=== PATIENT | female | born 1940 | race Caucasian/White ===

== ENCOUNTER 2017-10-04 10:48 | Observation (INO) ==
--- NOTE | 2017-10-04 11:36 | Emergency Department Note ---
Disposition Clinical Impression: Hypernatremia, Hypocalcemia, Dizziness, Nausea & vomiting Disposition: Admitted As Inpatient Condition: Fair Referrals: Tanesha Merritt MD [Primary Care Provider] - Forms: ED Satisfaction Letter Time of Disposition: 13:06 Dizziness HPI - General Chief Complaint: ED Dizziness Stated Complaint: Dizzy / Nausea Time Seen by Provider: 10/04/17 11:07 Source: patient, family Mode of arrival: ambulatory Limitations: no limitations Nursing Notes Reviewed: Yes Vital Signs Reviewed: Yes - History of Present Illness HPI Narrative: 76-year-old female who got up this morning was dizzy and had trouble walking to the bathroom. This occurred about 2 AM. States the dizziness is much worse with position. Pt Subjective Complaint: dizziness Onset (ago): Just [employer] Timing: sudden onset Description: "room spinning", off-balance, difficulty walking History of similar episodes: No History of trauma: No Severity: severe Improves with: nothing Worsens with: movement Associated symptoms: Reports: ataxia - Related Data Previous Rx's Medication Instructions Recorded Meclizine [Antivert] 25 mg PO TID PRN #20 tablet 06/30/16 Allergies Allergy/AdvReac Type Severity Reaction Status Date / Time No Known Allergies Allergy Verified 10/04/17 10:52 All systems ED: reviewed and negative except as stated. Constitutional: Denies: fever, chills, weakness, weight change Eyes: Denies: eye pain, eye discharge, vision change ENT ED: Denies: ear pain, throat pain, dental pain, hearing loss, epistaxis, congestion, dysphagia Cardiovascular: Denies: chest pain, palpitations, dyspnea on exertion, edema, syncope Respiratory: Denies: cough, dyspnea, wheezes, hemoptysis, stridor Gastrointestinal: Denies: abdominal pain, nausea, vomiting, diarrhea, constipation, hematemesis, melena, hematochezia Genitourinary: Denies: dysuria, frequency, hematuria, discharge Musculoskeletal: Denies: back pain, neck pain, arthralgia, myalgia Integumentary: Denies: rash, abrasion, lesions Neurological: Reports: other (Dizziness). Denies: headache, weakness, numbness , paresthesias, confusion, abnormal gait, vertigo Psychiatric: Denies: anxiety, depression, suicidal thoughts, homicidal thoughts , auditory hallucinations, visual hallucinations Endocrine: Denies: fatigue Hematological/Lymphatic: Denies: easy bleeding, easy bruising Allergic/Immunologic: Denies: facial swelling, urticaria Past Medical History - Past Medical History Medical history: Reports: arthritis, coronary artery disease, osteoporosis, thyroid disease, other Surgical history: Reports: cholecystectomy, thyroidectomy Psychiatric history: Reports: no psych history - Social History Smoking Status: Never smoker Smokeless Tobacco Status: No Alcohol use: Reports: none Drug use: Reports: none Physical Exam - General Limitations: no limitations General appearance: alert, in no apparent distress - Head Head exam: atraumatic, normocephalic, normal inspection - Eye Eye exam: Present: normal appearance, PERRL, EOMI - ENT ENT exam: normal exam, normal oropharynx, mucous membranes moist - Neck Neck exam: Present: normal inspection, full ROM, trachea midline - Chest Chest inspection: Present: normal inspection, symmetric chest wall rise - Respiratory Respiratory exam: Present: normal lung sounds bilaterally - Cardiovascular Cardiovascular exam: Present: regular rate, normal rhythm, normal heart sounds - Abdominal Exam Abdominal exam: Present: soft, Non-Tender. Absent: tenderness, distention, guarding, rebound, rigidity - Extremities Exam Extremities exam: Present: normal inspection, full ROM. Absent: tenderness, pedal edema - Expanded Lower Extremity Exam Neurovascular/Tendon exam: Absent: motor deficit, sensory deficit, tendon deficit - Back Exam Back exam: Present: normal inspection, full ROM. Absent: tenderness - Neurological Exam Neurological exam: Present: alert, oriented X3 - Psychiatric Psychiatric exam: Present: normal affect, normal mood - Skin Skin exam: Present: warm, dry, intact, normal color Course - Consultations Consultation #1: Discussed with Dr Francis, recommends D5 in water at 75 mL an hour. Time: 13:03 Consultation #2: Discussed with Dr. Engel, admit. Time: 13:04 Vital Signs Temperature 97.7 F 10/04/17 10:49 Pulse Rate 73 10/04/17 10:49 Respiratory Rate 18 10/04/17 10:49 Blood Pressure 154/91 10/04/17 10:49 O2 Sat by Pulse Oximetry 95 10/04/17 10:49 Temperature 97.7 F 10/04/17 10:49 Pulse Rate 67 10/04/17 12:30 Respiratory Rate 18 10/04/17 12:30 Blood Pressure 161/87 10/04/17 12:30 O2 Sat by Pulse Oximetry 98 10/04/17 12:30 Oxygen Delivery Oxygen Delivery Room Air Dizziness - Lab Data Lab results reviewed: Yes I reviewed the patient's lab results. Result diagrams: 10/04/17 11:12 10/04/17 11:12 Lab Results 10/04/17 10/04/17 10/04/17 Range/Units 11:11 11:12 11:12 WBC 4.2 L (4.3-11.1) K/mcL RBC 4.31 (3.82-4.97) M/mcL Hgb 13.0 (11.5-15.4) g/dL Hct 38.3 (35.3-44.9) % MCV 88.9 (83.0-100.0) fL MCH 30.2 (28.0-33.3) pg MCHC 33.9 (31.6-35.5) g/dL RDW 11.9 (11.5-14.5) % Plt Count 141 (140-400) K/mcL MPV 11.1 (9.4-12.4) fL Immature Gran % 1.0 (0-4) % Seg Neutrophils % 59.0 % Lymphocytes % 30.5 % Monocytes % 5.0 % Eosinophils % 3.3 % Basophils % 1.2 % Neutrophils # 2.5 (1.6-8.9) K/mcL Lymphocytes # 1.3 (0.6-4.6) K/mcL Monocytes # 0.2 (0.0-1.3) K/mcL Eosinophils # 0.1 (0.0-0.6) K/mcL Basophils # 0.1 (0.0-0.2) K/mcL Sodium 162 H* (136-145) mEq/L Potassium 4.0 (3.5-5.1) mEq/L Chloride 89 L (98-107) mEq/L Carbon Dioxide 21 L (23-29) mEq/L BUN 13 (8-23) mg/dL Creatinine 0.60 (0.60-1.20) mg/dL Est GFR ( Amer) > 60 (> 60) Est GFR (Non-Af Amer) > 60 (> 60) BUN/Creatinine Ratio 22 (6-26) Glucose 145 H (70-105) mg/dL POC Glucose 136 H (70-99) mg/dL Calculated Osmolality 337 H (280-300) Calcium 7.0 L (8.6-10.3) mg/dL Troponin I < 0.03 (< 0.04) ng/mL TSH 0.249 L (0.340-5.600) mcIU/mL Thyroxine (T4) 9.25 (5.50-11.00) mcg/dL - EKG Data EKG attestation: Yes I reviewed and interpreted this EKG. EKG shows normal: sinus rhythm Rate: normal Rhythm: NSR, PVC's Interpretation: no acute changes
[2017-10-04 11:39] LABS: Basophils # 0.1 K/mcL (0.0-0.2); Basophils % 1.2 %; Eosinophils # 0.1 K/mcL (0.0-0.6); Eosinophils % 3.3 %; Hematocrit 38.3 % (35.3-44.9); Lymphocytes # 1.3 K/mcL (0.6-4.6); Lymphocytes % 30.5 %; Mean Corpuscular HGB Conc 33.9 g/dL (31.6-35.5); Mean Corpuscular Hemoglobin 30.2 pg (28.0-33.3); Mean Corpuscular Volume 88.9 fL (83.0-100.0); Mean Platelet Volume 11.1 fL (9.4-12.4); Monocytes # 0.2 K/mcL (0.0-1.3); Neutrophils # 2.5 K/mcL (1.6-8.9); Platelet Count 141 K/mcL (140-400); Red Blood Count 4.31 M/mcL (3.82-4.97); Red Cell Distribution Width 11.9 % (11.5-14.5)
[2017-10-04 12:05] LABS: BUN/Creatinine Ratio 22 (6-26); Blood Urea Nitrogen 13 mg/dL (8-23); Carbon Dioxide 21 mEq/L (23-29); Chloride 89 mEq/L (98-107); Glucose 145 mg/dL (70-105); Osmolality,Calculated 337 (280-300); Sodium 162 mEq/L (136-145); Troponin I < 0.03 ng/mL (< 0.04); eGFR For African Americans > 60 (> 60); eGFR For Non-African Americans > 60 (> 60)
[2017-10-04 12:51] LABS: Thyroid Stimulating Hormone 0.249 mcIU/mL (0.340-5.600)
--- NOTE | 2017-10-04 13:14 | Internal Med History&Physical ---
Date of Encounter: 10/04/17 Time of Encounter: 13:13 Internal Medicine - H&P: HPI Chief complaint: N,V and dizzness History of present illness: Ms. Henry is a 76 year old female with past medical history of hypothyroidism, hyperlipidemia who presented this morning with episode of dizziness where she felt that the room spinning around her ., Aggravated by change in position , associated with nausea vomiting, she was evaluated by the ER staff and it was found that her sodium is above 160, also her calcium was around 7, nephrology was consulted and they recommended D5 W fluid at the rate of 75 , the patient was admitted for further evaluation and management of severe hyponatremia, hypocalcemia and dizziness. Past Med Surg Social Fam HX - Past Medical History Medical history: arthritis, coronary artery disease, osteoporosis, thyroid disease, other Psychiatric history: no psych history - Past Surgical History Surgical History: cholecystectomy, thyroidectomy - Social History Smoking Status: Never smoker Smokeless Tobacco Status: No Alcohol use: none Drug use: none Internal Medicine - H&P: Meds Aspirin [Lo-Dose Aspirin EC] 81 mg PO DAILY 10/04/17 [History] Cyclobenzaprine HCl 5 mg PO DAILY PRN 10/04/17 [History] Levothyroxine Sodium [Levoxyl] 88 mcg PO DAILY 10/04/17 [History] Meloxicam [Mobic] 15 mg PO DAILY 10/04/17 [History] Multivit-Min/FA/Lycopen/Lutein [A Thru Z Select Multivit Tab] 1 tab PO DAILY [History] Simvastatin [Zocor] 20 mg PO 2XW 10/04/17 [History] Ubidecarenone/Vit E/Vit E Mix [Co-Enzyme Q10 100 mg Softgel] 1 cap PO DAILY [History] Meclizine [Antivert] 12.5 mg PO TID 7 Days #21 tablet 10/06/17 [Rx] 3 Allergy/AdvReac Type Severity Reaction Status Date / Time No Known Allergies Allergy Verified 10/04/17 10:52 All Systems PM: A 10-system review of systems was performed and is negative for pertinent findings except as documented above in the HPI. - Constitutional Constitutional: fatigue, no chills, no fever(s), no night sweats - Cardiovascular Cardiovascular ROS IM: no chest pain, no diaphoresis, no dyspnea, no lightheadedness, no palpitations, no syncope - Respiratory Respiratory: no cough, no dyspnea, no wheezing, no excessive phlegm production - Gastrointestinal Gastrointestinal: nausea, vomiting, no abdominal pain, no diarrhea, no hematemesis, no hematochezia, no melena - Neurological Neurological ROS: dizziness, vertigo, no confusion, no convulsions, no focal weakness, no numbness, no tingling, no tremor(s) - Constitutional Vitals: Temp Pulse Resp BP Pulse Ox 97.7 F 67 18 161/87 98 10/04/17 10:49 10/04/17 12:30 10/04/17 12:30 10/04/17 12:30 10/04/17 12:30 General appearance: Present: A&O X 3 - Head Head exam: Present: atraumatic, normocephalic - Neck Neck exam general surgery: Present: supple, trachea midline. Absent: lymphadenopathy - Respiratory Respiratory exam: Present: CTAB. Absent: accessory muscle use, rales, rhonchi, wheezes - Cardiovascular Cardiovascular exam: Present: RRR, +S1, +S2. Absent: diastolic murmur, gallop, rubs, systolic murmur - GI/Abdominal GI/Abdominal exam: Present: normal bowel sounds, soft, no peritoneal signs. Absent: distended, tenderness - Extremities Exam Extremities exam: Present: warm, radial pulses palpable and symmetrical. Absent : calf tenderness, cyanotic, pedal edema Internal Med - H&P Results - Labs CBC & Chem 7: 10/05/17 02:15 10/05/17 02:15 Labs: Short CBC 10/04/17 Range/Units 11:12 WBC 4.2 L (4.3-11.1) K/mcL Hgb 13.0 (11.5-15.4) g/dL Hct 38.3 (35.3-44.9) % Plt Count 141 (140-400) K/mcL Neutrophils # 2.5 (1.6-8.9) K/mcL BMP 10/04/17 11:12 Sodium 162 H* Potassium 4.0 Chloride 89 L Carbon Dioxide 21 L BUN 13 Creatinine 0.60 Glucose 145 H Calcium 7.0 L Cardiac Enzymes 10/04/17 Range/Units 11:12 Troponin I < 0.03 (< 0.04) ng/mL - Impressions ITS Impressions Head CT 10/04/17 11:12 IMPRESSION: No acute intracranial abnormality. D/ / Ashlee Coughlin MD / Ashlee Coughlin MD Interpreting Provider: Ashlee Coughlin MD - Assessment and plan (1) Hypernatremia Status: Resolved Assessment and plan: Most likely secondary to volume depletion, nephrology was consulted and they recommended D5 W fluid at the rate of 75 (2) Hypocalcemia Status: Acute Assessment and plan: We will obtain ionized calcium. (3) Nausea & vomiting Status: Resolved Assessment and plan: the patient is complaining of several episodes of nausea vomiting, appears on the dry side, will start IV hydration with D5 W fluid at the rate of 75, Antiemetics Qualifiers: Qualified Code(s): R11.2 - Nausea with vomiting, unspecified (4) Dizziness Status: Acute Assessment and plan: rule out benign positional vertigo, we will consult neurology for further evaluation. (5) Hypothyroid Status: Chronic Assessment and plan: We will cont home meds Qualifiers: Qualified Code(s): E03.9 - Hypothyroidism, unspecified (6) Hyperlipemia Status: Acute Assessment and plan: We will cont homs Statin, FLP in AM Qualifiers: Qualified Code(s): E78.5 - Hyperlipidemia, unspecified (7) DVT prophylaxis Status: Acute Assessment and plan: SC heparin - Time Spent With Patient Total time spent is greater than 50% in coordination of care (as documented) at patient's floor/unit and/or counseling patient:
[2017-10-04] MEDS ORDERED: Naloxone 0.4 MG/ML INJ IVP PRN (13:56)
[2017-10-04 14:32] LABS: VBG Ionized Calcium 1.15 mmol/L (1.15-1.35)
[2017-10-04] MEDS: D5% in Water 1,000 ML IVC SCH (14:56)
[2017-10-04 15:37] LABS: Bilirubin,Urine Negative (Negative); Blood,Urine Negative (Negative); Clarity,Urine Clear (Clear); Color,Urine Yellow (Yellow); Glucose,Urine (UA) Normal (Normal); Ketones,Urine Negative (Negative); Leukocyte Esterase,Urine Negative (Negative); Nitrite,Urine Negative (Negative); PH,Urine 5.5 pH Units (5.0-8.0); Protein,Urine Negative (Neg-Trace); Specific Gravity,Urine 1.023 (1.010-1.025); Urobilinogen,Urine Normal (Normal)
[2017-10-04 22:34] LABS: Troponin I < 0.03 ng/mL (< 0.04)
[2017-10-04 22:48] LABS: Sodium 138 mEq/L (136-145)
[2017-10-05 02:32] LABS: Basophils % 0.5 %; Eosinophils # 0.1 K/mcL (0.0-0.6); Eosinophils % 1.1 %; Hematocrit 36.3 % (35.3-44.9); Hemoglobin 12.2 g/dL (11.5-15.4); INR 1.1; Immature Granulocytes % 0.4 % (0-4); Lymphocytes # 1.9 K/mcL (0.6-4.6); Lymphocytes % 23.5 %; Mean Corpuscular HGB Conc 33.6 g/dL (31.6-35.5); Mean Corpuscular Hemoglobin 29.7 pg (28.0-33.3); Mean Corpuscular Volume 88.3 fL (83.0-100.0); Mean Platelet Volume 11.3 fL (9.4-12.4); Monocytes # 0.6 K/mcL (0.0-1.3); Monocytes % 6.9 %; Neutrophils # 5.5 K/mcL (1.6-8.9); Platelet Count 154 K/mcL (140-400); Prothrombin Time 11.5 Seconds (9.4-12.1); Red Blood Count 4.11 M/mcL (3.82-4.97); Segmented Neutrophils % 67.6 %
[2017-10-05 02:36] LABS: Activated Partial Thrombo Time 20.4 Seconds (26.0-36.0)
[2017-10-05 02:45] LABS: Alanine Aminotransferase 18 Units/L (7-52); Albumin 3.9 g/dL (3.5-5.7); Albumin/Globulin Ratio 1.6 (1.1-2.2); Alkaline Phosphatase 63 Units/L (34-104); Aspartate Amino Transferase 22 Units/L (13-39); BUN/Creatinine Ratio 18 (6-26); Bilirubin,Total 0.6 mg/dL (0.3-1.0); Blood Urea Nitrogen 10 mg/dL (8-23); Calcium 9.2 mg/dL (8.6-10.3); Carbon Dioxide 25 mEq/L (23-29); Chloride 109 mEq/L (98-107); Chol/HDL Ratio 3.2 (0-4.9); Cholesterol 156 mg/dL (< 200); Globulin 2.5 g/dL (2.4-3.5); Glucose 115 mg/dL (70-105); HDL Cholesterol 49 mg/dL (40-59); LDL Cholesterol,Calculated 83 mg/dL (0-99); Osmolality,Calculated 288 (280-300); Phosphorous 2.9 mg/dL (2.7-4.5); Potassium 3.6 mEq/L (3.5-5.1); Sodium 139 mEq/L (136-145); Total Protein 6.4 g/dL (6.4-8.9); Triglycerides 120 mg/dL (< 150); eGFR For African Americans > 60 (> 60); eGFR For Non-African Americans > 60 (> 60)
[2017-10-05] MEDS: D5% in Water 1,000 ML IVC SCH (04:20)
--- NOTE | 2017-10-05 07:20 | Electrocardiograph Report ---
[facility] Test Date: 2017-10-04 Pat Name: Ivania Henry Department: 102 Room: 2N05 Gender: F [employer]: Thang : 1940 Requested By: Lawrence Paniagua Order Number: [id number] Reading MD: Camille Ferrara Measurements Intervals [place] Rate: 79 P: 52 MN: 170 QRS: 4 QRSD: 100 T: 64 QT: 387 QTc: 422 Interpretive Statements SINUS RHYTHM WITH OCCASIONAL VENTRICULAR PREMATURE COMPLEXES SEPTAL MYOCARDIAL INFARCTION [40+ ms Q WAVE IN V1/V2], PROBABLY OLD WARNING: DATA QUALITY MAY AFFECT INTERPRETATION Electronically Signed On 10-05-2017 7:19:01 EDT by Camille Ferrara
--- NOTE | 2017-10-05 07:28 | Event Note ---
Date of Encounter: 10/05/17 Time of Encounter: 07:25 Nephrology chart review There appears to be no hypernatremia or hypocalcemia on this patient's labs. I suspect the initial law draw in the ER was erroneous. No indications therefore for a nephrology consult; will sign-off. Please feel free to call or page me with any questions.
[2017-10-05] MEDS: Aspirin Enteric Coated 81 MG Tablet PO SCH (09:09)
[2017-10-05] MEDS: Multivit/Ca/Min/Fe/FA 1 TAB TABLET PO SCH (09:09)
--- NOTE | 2017-10-05 09:45 | Neurology - Consult Note ---
Date of Encounter: 10/05/17 Time of Encounter: 08:15 Assessment and Plan (1) Dizziness Current Visit: No Status: Acute Vertiginous-type dizziness with positive Vestal-Hallpike. Patient states that she has mild improvement compared with yesterday. Most likely etiology is BPPV. Will obtain MRI to rule out posterior fossa infarct. continue meclizine daily for 1 to 2 weeks. Should follow up with ENT for VNG, vestibular therapy. History of Present Illness Chief complaint: Dizziness HPI: Ivania Henry is a 76 year old female who presents with dizziness that started in the [employer] of 10/04/17. She first noticed it on standing to use the restroom at around 4 am. She had to brace herself along the wall to make it to the bathroom, but attributed it to "being half-asleep" and went back to bed. She awoke several hours later, and the dizziness was much worse and was brought on by any movement. She also experienced nausea and vomiting. She describes the dizziness as similar to past episodes of vertigo, the last being several years ago. She states that she feels "disoriented" and like she "doesn't know where to put [her] feet down", but denies room spinning. She denies any other symptoms , including headache, numbness, or weakness. 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 Past Med Surg Social Fam HX - Past Medical History Medical history: arthritis, coronary artery disease, osteoporosis, thyroid disease, other Psychiatric history: no psych history - Past Surgical History Surgical History: cholecystectomy, thyroidectomy - Social History Smoking Status: Never smoker Smokeless Tobacco Status: No Alcohol use: none Drug use: none Medications and Allergies Aspirin [Lo-Dose Aspirin EC] 81 mg PO DAILY 10/04/17 [History] Cyclobenzaprine HCl 5 mg PO DAILY PRN 10/04/17 [History] Levothyroxine Sodium [Levoxyl] 88 mcg PO DAILY 10/04/17 [History] Meloxicam [Mobic] 15 mg PO DAILY 10/04/17 [History] Multivit-Min/FA/Lycopen/Lutein [A Thru Z Select Multivit Tab] 1 tab PO DAILY [History] Simvastatin [Zocor] 20 mg PO 2XW 10/04/17 [History] Ubidecarenone/Vit E/Vit E Mix [Co-Enzyme Q10 100 mg Softgel] 1 cap PO DAILY [History] 3 Allergy/AdvReac Type Severity Reaction Status Date / Time No Known Allergies Allergy Verified 10/04/17 10:52 All Systems: The remainder of the systems were reviewed and are negative Review of Systems: A 10-point review of systems was completed and was negative except as stated in the HPI. Physical Examination - Vital Signs Vital Signs: Initial Vital Signs Temp Pulse Resp BP Pulse Ox 97.7 F 73 18 154/91 95 10/04/17 10:49 10/04/17 10:49 10/04/17 10:49 10/04/17 10:49 10/04/17 10:49 - Exam Exam: CONSTITUTIONAL: Well-developed and well-nourished. In no acute distress. CARDIOVASCULAR: Regular rate and rhythm. +S1 and S2. CHEST: Normal work of breathing. NEURO: Mental Status: Alert and oriented x3. Follows commands and answers questions. Cranial Nerves: PERRL. EOMI. Visual schmitz intact. Symmetrical facial strength. Facial sensation intact. No dysarthria. Hearing intact. Soft palate elevates symmetrically. SCM and trapezius without weakness. Tongue protrudes in midline. Motor: Left - 5/5 in upper and lower extremities. Right - 5/5 in upper and lower extremities. Sensation intact. Cerebellar function intact to [id number]. Ximena-Hallpike was positive bilaterally, R > L. Results - Laboratory Findings CBC and BMP: 10/05/17 02:15 10/05/17 02:15 Abnormal lab findings: Abnormal lab results APTT 20.4 Seconds (26.0-36.0) L 10/05/17 02:15 Chloride 109 mEq/L (98-107) H 10/05/17 02:15 Creatinine 0.56 mg/dL (0.60-1.20) L 10/05/17 02:15 Glucose 115 mg/dL (70-105) H 10/05/17 02:15 POC Glucose 136 mg/dL (70-99) H 10/04/17 11:11 TSH 0.249 mcIU/mL (0.340-5.600) L 10/04/17 11:12 Consult Discharge Plan - Plan Referrals: Tanesha Matamoros [Other] - 10/13/17 11:45 am
--- NOTE | 2017-10-05 20:55 | Internal Med Progress Note ---
Date of Encounter: 10/05/17 Time of Encounter: 19:00 - Assessment and plan (1) Acute labyrinthitis Status: Acute Assessment and plan: It could be BPPV. However, I am favoring diagnosis of acute labyrinthitis. Her symptoms are subsiding quickly. She has normal MRI of brain. See notes from neurology.Will continue oral Meclizine. Qualifiers: Laterality: unspecified laterality Qualified Code(s): H83.09 - Labyrinthitis, unspecified ear (2) Hypothyroid Status: Chronic Assessment and plan: Seems to be under control. Her TSH is slightly decreased. It should be repeated in six weeks. Qualifiers: Qualified Code(s): E03.9 - Hypothyroidism, unspecified (3) Hyperlipidemia Status: Acute Assessment and plan: It is a chronic problem. Will continue Simvastatin. Qualifiers: Hyperlipidemia type: unspecified Qualified Code(s): E78.5 - Hyperlipidemia , unspecified - Time Spent With Patient Total time spent is greater than 50% in coordination of care (as documented) at patient's floor/unit and/or counseling patient: - Subjective Interval history: She feels better today. She's able to ambulate on her own. She feels vertigo, when moving her head to sides. Denies headache. Denies chest pain. Denies difficulty breathing, coughing and wheezing. She has normal bowel movements. She has normal urination. - Constitutional Vitals: Temp Pulse Resp BP Pulse Ox 98.1 F 81 17 139/79 93 10/05/17 19:11 10/05/17 19:56 10/05/17 19:11 10/05/17 16:18 10/05/17 07:14 General appearance: Present: A&O X 3, pleasant, no acute distress, answers questions appropriately - Respiratory Respiratory exam: Present: CTAB. Absent: accessory muscle use, rales, rhonchi, wheezes - Cardiovascular Cardiovascular exam: Present: RRR, +S1, +S2. Absent: diastolic murmur, gallop, rubs, systolic murmur - GI/Abdominal GI/Abdominal exam: Present: normal bowel sounds, soft, no peritoneal signs. Absent: distended, tenderness - Neurological Exam Neurological exam: Present: oriented X3, no focal deficits. Absent: pronater drift, facial droop, speech deficit Additional comments: She has mild vertigo but no nystagmus when moving her head with to sides. Internal Medicine: Result - Labs CBC & Chem 7: 10/05/17 02:15 10/05/17 02:15 Labs: Short CBC 10/05/17 Range/Units 02:15 WBC 8.1 D (4.3-11.1) K/mcL Hgb 12.2 (11.5-15.4) g/dL Hct 36.3 (35.3-44.9) % Plt Count 154 (140-400) K/mcL Neutrophils # 5.5 (1.6-8.9) K/mcL BMP 10/04/17 10/05/17 21:59 02:15 Sodium 138 D 139 Potassium 3.6 Chloride 109 H Carbon Dioxide 25 BUN 10 Creatinine 0.56 L Glucose 115 H Calcium 9.2 Cardiac Enzymes 10/04/17 10/05/17 Range/Units 21:59 02:15 Troponin I < 0.03 < 0.03 (< 0.04) ng/mL Liver Function 10/05/17 Range/Units 02:15 Total Bilirubin 0.6 (0.3-1.0) mg/dL AST 22 (13-39) Units/L ALT 18 (7-52) Units/L Alkaline Phosphatase 63 (34-104) Units/L Albumin 3.9 (3.5-5.7) g/dL - ABG Interpretation ABG results: PT/INR, D-dimer PT 11.5 Seconds (9.4-12.1) 10/05/17 02:15 Consult Discharge Plan - Plan Instructions: Meclizine (By mouth), Vertigo (DC) Additional Instructions: ACTIVITY - TOLERATED Referrals: Tanesha Matamoros [Other] - 10/13/17 11:45 am Prescriptions: Meclizine [Antivert] 12.5 mg PO TID 7 Days #21 tablet
[2017-10-06] MEDS: Aspirin Enteric Coated 81 MG Tablet PO SCH (08:03)
[2017-10-06] MEDS: Multivit/Ca/Min/Fe/FA 1 TAB TABLET PO SCH (08:03)
--- NOTE | 2017-10-06 10:30 | Neurology Progress Note ---
Date of Encounter: 10/06/17 Time of Encounter: 09:00 Assessment and Plan (1) Dizziness Current Visit: No Status: Acute Vertiginous-type dizziness with positive Valier-Hallpike. Continuing improvement. Most likely etiology is BPPV. Doubt Mnire's syndrome due to lack of ontological symptoms. Dealt vestibular neuritis due to short course of illness with improvement. MRI was reviewed and was negative for posterior circulation infarct. Recommend continuation of meclizine for one to 2 weeks. Consider follow-up with ENT for VNG and vestibular therapy. May be discharged from a neurologic standpoint. Subjective Principal diagnosis: Peripheral Vertigo Interval history: Patient has had slight interval improvement, with less dizziness. It is exacerbated only by quick movements of her head. Continues to deny otologic symptoms, including hearing loss and tinnitus. Objective - Constitutional Vitals: Temp Pulse Resp BP Pulse Ox 97.2 F L 76 16 120/72 93 10/06/17 06:51 10/06/17 06:51 10/06/17 06:51 10/06/17 06:51 10/05/17 07:14 - Other Additional findings: CONSTITUTIONAL: Well-developed and well-nourished. Comfortable and in no acute distress. CARDIOVASCULAR: Regular rate and rhythm. +S1 and S2. CHEST: Normal work of breathing. NEURO: Mental Status: Alert and oriented x3. Follows commands and answers questions. Cranial Nerves: PERRL. EOMI. Visual schmitz intact. Symmetrical facial strength. Facial sensation intact. No dysarthria. Hearing intact. Soft palate elevates symmetrically. SCM and trapezius without weakness. Tongue protrudes in midline. Motor: Left - 5/5 in upper and lower extremities. R - 5/5 in upper and lower extremities. Sensation intact. Cerebellar function intact to [id number]. Results - Laboratory Findings CBC and BMP: 10/05/17 02:15 10/05/17 02:15 Abnormal lab findings: Abnormal lab results APTT 20.4 Seconds (26.0-36.0) L 10/05/17 02:15 Chloride 109 mEq/L (98-107) H 10/05/17 02:15 Creatinine 0.56 mg/dL (0.60-1.20) L 10/05/17 02:15 Glucose 115 mg/dL (70-105) H 10/05/17 02:15 POC Glucose 136 mg/dL (70-99) H 10/04/17 11:11 TSH 0.249 mcIU/mL (0.340-5.600) L 10/04/17 11:12 - Diagnostic Findings Additional findings: Head CT 10/04/17 11:12 IMPRESSION: No acute intracranial abnormality. D/ / Ashlee Coughlin MD / Ashlee Coughlin MD Interpreting Provider: Ashlee Coughlin MD Brain MRI 10/05/17 10:40 IMPRESSION: No acute infarct, intracranial hemorrhage, or significant mass effect. Chronic small vessel ischemic white matter disease and cerebral volume loss. D/ / 10/05/2017 22:00:42 Anthony Enamorado MD / chemo Interpreting Provider: Anthony Enamorado MD Consult Discharge Plan - Plan Referrals: Tanesha Matamoros [Other] - 10/13/17 11:45 am
[2017-10-06 11:07] VITALS: BP 143/83
--- NOTE | 2017-10-06 13:42 | Discharge Summary ---
- NOTES TO OUTPATIENT PROVIDER Notes to Outpatient Provider: PLEASE, REFER HER TO AN ENT, IF SHE CONTINUES WITH DIZZINESS MORE THAN 7 DAYS. Orders not resulted at time of discharge: Pending orders 10/04/17 13:56 ECG 12 lead ECG [ECG] Routine Date of Encounter: 10/06/17 Time of Encounter: 13:40 - Discharge Diagnosis (1) Acute labyrinthitis Priority: Primary Status: Acute Qualifiers: Laterality: unspecified laterality Qualified Code(s): H83.09 - Labyrinthitis, unspecified ear (2) Hypothyroid Priority: Secondary Status: Chronic Qualifiers: Qualified Code(s): E03.9 - Hypothyroidism, unspecified (3) Hyperlipidemia Priority: Secondary Status: Acute Qualifiers: Hyperlipidemia type: unspecified Qualified Code(s): E78.5 - Hyperlipidemia , unspecified Hospital course: Ms. Henry is a 76 year old female.It was shortly before this admission, when she suddenly developed vertigo. It was associated with the difficulty walking. CT of brain was negative. Follow-up MRI of brain was normal, too. Neurology was consulted. She is doing significantly better; on oral Meclizine. She is likely suffering from acute labyrinthitis. She may also have BPPV. Will continue Meclizine for about one week. She will need follow-up with an ENT, if her symptoms continue for more than seven days. - Time Spent with Patient Total time spent providing and/or coordinating discharge services: Less than 30 minutes - Discharge Medications Prescriptions: Meclizine [Antivert] 12.5 mg PO TID 7 Days #21 tablet Home Medications: Aspirin [Lo-Dose Aspirin EC] 81 mg PO DAILY 10/04/17 [History] Cyclobenzaprine HCl 5 mg PO DAILY PRN 10/04/17 [History] Levothyroxine Sodium [Levoxyl] 88 mcg PO DAILY 10/04/17 [History] Meloxicam [Mobic] 15 mg PO DAILY 10/04/17 [History] Multivit-Min/FA/Lycopen/Lutein [A Thru Z Select Multivit Tab] 1 tab PO DAILY [History] Simvastatin [Zocor] 20 mg PO 2XW 10/04/17 [History] Ubidecarenone/Vit E/Vit E Mix [Co-Enzyme Q10 100 mg Softgel] 1 cap PO DAILY [History] Meclizine [Antivert] 12.5 mg PO TID 7 Days #21 tablet 10/06/17 [Rx] Allergies/Adverse Reactions: 3 Allergy/AdvReac Type Severity Reaction Status Date / Time No Known Allergies Allergy Verified 10/04/17 10:52 Date of admission: 10/04/17 13:33 Primary care physician: Tanesha Camacho Consults: 10/04/17 14:00 Consult to Physician [CONS] Routine Consulting Provider: Jcarlos Francis Reason for Consult: hypernatermia Time Notified: 14:01 Call Completed: Yes 10/05/17 07:17 Consult to Neurology [CONS] Routine Consulting Provider: [facility] Reason for Consult: Vertigo Time Notified: 07:18 Call Completed: No Discharging clinician: Kelvin Bowman Anticipated date of discharge: 10/06/17 - Constitutional Vitals: Temp Pulse Resp BP Pulse Ox 97.4 F L 66 17 143/83 93 10/06/17 11:05 10/06/17 11:05 10/06/17 11:05 10/06/17 11:05 10/05/17 07:14 General appearance: Present: A&O X 3, pleasant, no acute distress, answers questions appropriately - Respiratory Respiratory exam: Present: CTAB. Absent: rales, wheezes - Cardiovascular Cardiovascular exam: Present: RRR. Absent: distant heart sounds, gallop, systolic murmur - Neurological Exam Neurological exam: Present: CN II-XII intact, normal gait, oriented X3, no focal deficits. Absent: pronater drift, facial droop, speech deficit - Patient Status Disposition: Home, Self-Care Condition: Good Functional capacity at discharge: independent ambulation Overall status at discharge: patient is back to baseline - Discharge Instructions Instructions: Meclizine (By mouth), Vertigo (DC) Follow Up With: Tanesha Matamoros [Other] - 10/13/17 11:45 am Additional Instructions: ACTIVITY - TOLERATED - VTE Reasons for not Prescribing Prophylaxis: Treatment not Indicated - Low risk for VTE Deep Vein Thrombosis/Pulmonary Embolism Present on Admission: No
== END 2017-10-06 14:36 | disposition home or self-care (01) ==
LOC: EMEROO 10:48 → SUATTDRO 13:33 → INTOOBSV 13:33 → 2NNU 13:33
PROVIDERS: ADMIT Internal Medicine Nephrology; ATTEND Internal Medicine

== ENCOUNTER 2019-07-27 08:00 | Observation (INO) ==
[2019-07-27] MEDS ORDERED: 0.9 % Sodium Chloride 500 ML IV ONE (08:30)
[2019-07-27] MEDS ORDERED: 0.9 % Sodium Chloride 500 ML ONE (09:23)
[2019-07-27 18:36] LABS: Basophils % 0.2 %; Eosinophils % 0.3 %; Hematocrit 39.7 % (35.3-44.9); Hemoglobin 13.4 g/dL (11.5-15.4); Immature Granulocytes % 0.1 % (0-4); Lymphocytes # 0.5 K/mcL (0.6-4.6); Lymphocytes % 3.8 %; Mean Corpuscular HGB Conc 33.8 g/dL (31.6-35.5); Mean Corpuscular Hemoglobin 30.7 pg (28.0-33.3); Mean Corpuscular Volume 90.8 fL (83.0-100.0); Mean Platelet Volume 10.7 fL (9.4-12.4); Monocytes # 0.7 K/mcL (0.0-1.3); Neutrophils # 12.8 K/mcL (1.6-8.9); Platelet Count 184 K/mcL (140-400); Red Blood Count 4.37 M/mcL (3.82-4.97); Red Cell Distribution Width 11.8 % (11.5-14.5); Segmented Neutrophils % 90.6 %; White Blood Count 14.1 K/mcL (4.3-11.1)
[2019-07-27 18:38] LABS: Activated Partial Thrombo Time 29.6 Seconds (26.0-36.0); Prothrombin Time 11.5 Seconds (9.4-12.1)
[2019-07-27] MEDS ORDERED: Naloxone 0.4 MG/ML INJ IVP PRN (18:38)
[2019-07-27] MEDS ORDERED: Ondansetron 4 MG/2 ML VIAL IVP PRN (18:38)
[2019-07-27] MEDS ORDERED: Nitroglycerin 0.4 MG TAB.SUBL SL PRN (18:42)
[2019-07-27 18:45] LABS: Bilirubin,Urine Negative (Negative); Blood,Urine Negative (Negative); Clarity,Urine Clear (Clear); Color,Urine Yellow (Yellow); Glucose,Urine (UA) Normal (Normal); Ketones,Urine Negative (Negative); Protein,Urine Negative (Neg-Trace); Specific Gravity,Urine 1.028 (1.010-1.025); Urobilinogen,Urine Normal (Normal)
[2019-07-27 18:46] LABS: Leukocyte Esterase,Urine Negative (Negative); Nitrite,Urine Negative (Negative)
[2019-07-27 19:59] LABS: BUN/Creatinine Ratio 32 (6-26); Blood Urea Nitrogen 22 mg/dL (8-23); Carbon Dioxide 28 mEq/L (23-29); Chloride 102 mEq/L (98-107); Glucose 126 mg/dL (70-105); Osmolality,Calculated 291 (280-300); Potassium 3.8 mEq/L (3.5-5.1); Sodium 138 mEq/L (136-145); eGFR For African Americans > 60 (> 60); eGFR For Non-African Americans > 60 (> 60)
[2019-07-27 20:00] LABS: Calcium 9.7 mg/dL (8.6-10.3); Creatine Kinase 202 Units/L (30-223); Magnesium 1.8 mg/dL (1.6-2.6); Troponin I < 0.03 ng/mL (< 0.04)
[2019-07-27 20:24] LABS: Folate > 22.3 ng/mL (3.0-16.0); Vitamin B12 528 pg/mL (250-1100)
[2019-07-27] MEDS: 0.9 % Sodium Chloride 1,000 ML IVC SCH (20:50)
[2019-07-27] MEDS: *HR* Heparin 5,000 UNIT/ML VIAL SQ SCH (20:51)
[2019-07-28 01:16] LABS: Basophils % 0.4 %; Eosinophils # 0.1 K/mcL (0.0-0.6); Eosinophils % 0.9 %; Hematocrit 35.4 % (35.3-44.9); Hemoglobin 11.9 g/dL (11.5-15.4); Immature Granulocytes % 0.3 % (0-4); Lymphocytes # 0.7 K/mcL (0.6-4.6); Lymphocytes % 8.7 %; Mean Corpuscular HGB Conc 33.6 g/dL (31.6-35.5); Mean Corpuscular Hemoglobin 30.9 pg (28.0-33.3); Mean Corpuscular Volume 91.9 fL (83.0-100.0); Mean Platelet Volume 10.7 fL (9.4-12.4); Monocytes # 0.5 K/mcL (0.0-1.3); Monocytes % 5.9 %; Neutrophils # 6.6 K/mcL (1.6-8.9); Platelet Count 152 K/mcL (140-400); Red Blood Count 3.85 M/mcL (3.82-4.97); Red Cell Distribution Width 11.9 % (11.5-14.5); Segmented Neutrophils % 83.8 %; White Blood Count 7.8 K/mcL (4.3-11.1)
[2019-07-28 01:35] LABS: BUN/Creatinine Ratio 21 (6-26); Blood Urea Nitrogen 13 mg/dL (8-23); Calcium 8.6 mg/dL (8.6-10.3); Carbon Dioxide 25 mEq/L (23-29); Chloride 105 mEq/L (98-107); Chol/HDL Ratio 2.9 (0-4.9); Cholesterol 145 mg/dL (< 200); Glucose 123 mg/dL (70-105); HDL Cholesterol 50 mg/dL (40-59); LDL Cholesterol,Calculated 75 mg/dL (0-99); Osmolality,Calculated 283 (280-300); Potassium 3.5 mEq/L (3.5-5.1); Sodium 136 mEq/L (136-145); Triglycerides 99 mg/dL (< 150); eGFR For African Americans > 60 (> 60); eGFR For Non-African Americans > 60 (> 60)
[2019-07-28] MEDS: *HR* Heparin 5,000 UNIT/ML VIAL SQ SCH ×3 (06:15→20:36)
[2019-07-28] MEDS: Aspirin 81 MG TAB.CHEW PO SCH (13:15)
[2019-07-28] MEDS: 0.9 % Sodium Chloride 1,000 ML IVC SCH (13:31)
[2019-07-29] MEDS: *HR* Heparin 5,000 UNIT/ML VIAL SQ SCH ×2 (05:37→14:17)
[2019-07-29 05:38] LABS: Hematocrit 37.7 % (35.3-44.9); Hemoglobin 12.2 g/dL (11.5-15.4); Mean Corpuscular HGB Conc 32.4 g/dL (31.6-35.5); Mean Corpuscular Hemoglobin 29.9 pg (28.0-33.3); Mean Corpuscular Volume 92.4 fL (83.0-100.0); Mean Platelet Volume 10.9 fL (9.4-12.4); Platelet Count 155 K/mcL (140-400); Red Blood Count 4.08 M/mcL (3.82-4.97); Red Cell Distribution Width 11.9 % (11.5-14.5); White Blood Count 4.7 K/mcL (4.3-11.1)
[2019-07-29 05:57] LABS: BUN/Creatinine Ratio 15 (6-26); Blood Urea Nitrogen 9 mg/dL (8-23); Calcium 8.8 mg/dL (8.6-10.3); Carbon Dioxide 23 mEq/L (23-29); Chloride 109 mEq/L (98-107); Glucose 96 mg/dL (70-105); Osmolality,Calculated 287 (280-300); Potassium 3.8 mEq/L (3.5-5.1); Sodium 139 mEq/L (136-145); eGFR For African Americans > 60 (> 60); eGFR For Non-African Americans > 60 (> 60)
[2019-07-29] MEDS ORDERED: Regadenoson 0.4 MG/5 ML SYRINGE IVP ONE (06:18)
[2019-07-29 06:43] VITALS: BP 160/87
[2019-07-29] MEDS ORDERED: Vitamin B Complex/Vit C/Vit E 1 EACH TABLET PO SCH (09:00)
[2019-07-29] MEDS ORDERED: Cholecalciferol (D-3) 1,000 UNIT (25MCG) TABLET PO SCH (09:00)
[2019-07-29] MEDS: Aspirin 81 MG TAB.CHEW PO SCH (11:42)
== END 2019-07-29 15:04 | disposition home or self-care (01) ==
LOC: 3BNU 08:00 → EMEROOARM 08:00 → 3BNU 12:26 → SUATTDRO 17:34
PROVIDERS: ADMIT Family Medicine; ATTEND Family Medicine

== ENCOUNTER 2021-07-02 11:02 | Observation (INO) ==
[2021-07-02 11:51] LABS: Basophils % 0.7 %; Eosinophils # 0.1 K/mcL (0.0-0.6); Eosinophils % 1.6 %; Hematocrit 38.6 % (35.3-44.9); Hemoglobin 12.9 g/dL (11.5-15.4); Immature Granulocytes % 0.4 % (0-4); Lymphocytes # 0.8 K/mcL (0.6-4.6); Lymphocytes % 18.5 %; Mean Corpuscular HGB Conc 33.4 g/dL (31.6-35.5); Mean Corpuscular Hemoglobin 30.6 pg (28.0-33.3); Mean Corpuscular Volume 91.7 fL (83.0-100.0); Mean Platelet Volume 10.8 fL (9.4-12.4); Monocytes # 0.2 K/mcL (0.0-1.3); Monocytes % 5.4 %; Neutrophils # 3.3 K/mcL (1.6-8.9); Platelet Count 146 K/mcL (140-400); Red Blood Count 4.21 M/mcL (3.82-4.97); Red Cell Distribution Width 12.4 % (11.5-14.5); Segmented Neutrophils % 73.4 %; White Blood Count 4.5 K/mcL (4.3-11.1)
[2021-07-02 11:56] LABS: INR 1.1; Prothrombin Time 11.7 Seconds (9.4-12.1)
[2021-07-02 11:59] LABS: Activated Partial Thrombo Time 26.8 Seconds (26.0-36.0)
[2021-07-02 12:46] LABS: BUN/Creatinine Ratio 21 (6-26); Blood Urea Nitrogen 13 mg/dL (8-23); Calcium 9.6 mg/dL (8.6-10.3); Carbon Dioxide 26 mEq/L (23-29); Chloride 106 mEq/L (98-107); Glucose 146 mg/dL (70-105); Magnesium 1.8 mg/dL (1.6-2.6); Osmolality,Calculated 293 (280-300); Potassium 4.1 mEq/L (3.5-5.1); Sodium 140 mEq/L (136-145); Troponin I < 0.03 ng/mL (< 0.04); eGFR For African Americans > 60 (> 60); eGFR For Non-African Americans > 60 (> 60)
[2021-07-02 12:53] LABS: Thyroid Stimulating Hormone 1.026 mcIU/mL (0.340-5.600)
[2021-07-02] MEDS ORDERED: Mag Hydrox/Al Hydrox/Simeth 30 ML UDC PO PRN (13:21)
[2021-07-02] MEDS ORDERED: Naloxone 0.4 MG/ML INJ IVP PRN (13:21)
[2021-07-02] MEDS ORDERED: Melatonin 3 MG TABLET PO PRN (13:21)
[2021-07-02] MEDS ORDERED: MOM Conc 10 ML UD.LIQ PO PRN (13:21)
[2021-07-02] MEDS ORDERED: Ondansetron ODT 4 MG TAB.RAPDIS SL PRN (13:21)
[2021-07-02] MEDS ORDERED: Perflutren Lipid Microsphere 1.3 ML in 0.9 % Sodium Chloride 8.7 ML IVP PRN (13:23)
[2021-07-02] MEDS ORDERED: Isovue-370 500 ML BOTTLE IVP ONE (13:28)
[2021-07-03 07:18] LABS: Basophils % 0.5 %; Eosinophils # 0.1 K/mcL (0.0-0.6); Eosinophils % 2.5 %; Hematocrit 33.9 % (35.3-44.9); Hemoglobin 11.6 g/dL (11.5-15.4); Immature Granulocytes % 0.2 % (0-4); Lymphocytes # 1.6 K/mcL (0.6-4.6); Lymphocytes % 29.5 %; Mean Corpuscular HGB Conc 34.2 g/dL (31.6-35.5); Mean Corpuscular Hemoglobin 31.4 pg (28.0-33.3); Mean Corpuscular Volume 91.9 fL (83.0-100.0); Mean Platelet Volume 10.8 fL (9.4-12.4); Monocytes # 0.4 K/mcL (0.0-1.3); Monocytes % 6.3 %; Neutrophils # 3.4 K/mcL (1.6-8.9); Platelet Count 153 K/mcL (140-400); Red Blood Count 3.69 M/mcL (3.82-4.97); Red Cell Distribution Width 12.4 % (11.5-14.5); White Blood Count 5.6 K/mcL (4.3-11.1)
[2021-07-03 07:26] LABS: BUN/Creatinine Ratio 21 (6-26); Blood Urea Nitrogen 13 mg/dL (8-23); Calcium 9.2 mg/dL (8.6-10.3); Carbon Dioxide 27 mEq/L (23-29); Chloride 106 mEq/L (98-107); Glucose 98 mg/dL (70-105); Osmolality,Calculated 288 (280-300); Potassium 3.6 mEq/L (3.5-5.1); Sodium 139 mEq/L (136-145); eGFR For African Americans > 60 (> 60); eGFR For Non-African Americans > 60 (> 60)
[2021-07-03] MEDS: Aspirin Enteric Coated 81 MG Tablet PO SCH (09:20)
[2021-07-04] MEDS: Aspirin Enteric Coated 81 MG Tablet PO SCH (08:52)
[2021-07-05 03:17] VITALS: O2SAT 96
[2021-07-05] MEDS: Aspirin Enteric Coated 81 MG Tablet PO SCH (08:19)
[2021-07-05 10:46] VITALS: BP 132/86; PULSE 84; TEMP 97.8
== END 2021-07-05 13:00 | disposition home or self-care (01) ==
LOC: EMEROOARM 11:02 → 3BNU 11:02
PROVIDERS: ADMIT Internal Medicine; ATTEND Internal Medicine